=== PATIENT | female | born 1975 | race Caucasian/White ===

== ENCOUNTER 2020-06-28 09:36 | Outpatient (CLI) | payer MEDICAID ==
--- NOTE | 2020-06-28 13:37 | XRAY Report ---
PROCEDURE: Hip w/Pelvis 2-3V RT INDICATIONS: HIP JOINT PAIN, RIGHT TECHNIQUE: AP pelvis with lateral view of the right hip. COMPARISON: None. FINDINGS: Bones: No acute fractures or dislocations. Pelvic ring appears intact. No suspicious bony lesions. There is minimal spurring at the lateral aspect of the acetabula bilaterally. Soft tissues: The visualized bowel gas pattern is normal. No suspicious soft tissue calcifications. IMPRESSION: No acute osseous abnormality. If there is clinical concern or persistent symptoms, additi onal imaging such as repeat radiographs or advanced imaging (e.g. CT, MRI) may be helpful for further evaluation. Reviewed by: Aamir Clemons MD on 06/28/2020 1:35 PM PDT Approved by: Aamir Clemons MD on 06/28/2020 1:35 PM PDT Station ID: [id number]
== END 2020-06-28 09:37 | disposition home or self-care (01) ==
LOC: DI.N 09:36
PROVIDERS: ATTEND Physician Assistant
DX: M25.551 Pain in right hip (principal)